=== PATIENT | male | born 1995 | race Caucasian/White ===

== ENCOUNTER 2020-06-21 19:12 | Emergency (ER) | payer MEDICARE ==
[~2020-06-21] VITALS: Ht 188 cm; Wt 118.2 kg
[2020-06-21] MEDS ORDERED: ACETAMINOPHEN 500 MG TABLET PO ONE (21:00)
[2020-06-21] MEDS ORDERED: ONDANSETRON ODT 4 MG TAB.RAPDIS. PO ONE (21:00)
--- NOTE | 2020-06-21 21:02 | PHYS DOC ---
Past Medical History Past Medical History: No Pertinent History Additional Past Surgical Histo: Left wrist fracture repair, left thumb dislocation, wisdom teeth Smoking Status: Former Smoker Alcohol Use: None Drug Use: None Social History Narrative: Former cocaine user (sober since 2019) General Adult EDM: Chief Complaint: MULTIPLE COMPLAINTS HPI: HPI: 24-year-old male presents with history of generalized malaise, subjective fever and chills, headache, sore throat, and cough which started yesterday afternoon. Patient also reports some associated nausea and vomiting. Patient does report new loss of taste and smell in addition to nasal congestion and runny nose.. Denies known sick contacts. Denies known exposure to COVID-19. Review of Systems: Review of Systems: Constitutional: Reports subjective fever, chills, and generalized malaise Eyes: Denies redness or eye pain HENT: Reports nasal congestion, sore throat, and loss of taste and smell Respiratory: Reports cough and shortness of breath Cardiovascular: Denies chest pain or palpitations GI: Denies abdominal pain; reports nauseaa and vomiting : Denies dysuria or hematuria Musculoskeletal: Denies back pain or neck pain Integument: Denies rash or skin lesions Neurologic: Reports headache; denies focal weakness or sensory changes Complete systems were reviewed and found to be within normal limits, except as documented in this note. Current Medications: Current Medications Medications (Trade) Dose Ordered Sig/Nithin Start Time Stop Time Status Last Admin Dose Admin Acetaminophen (Tylenol) 500 mg 1X ONCE 06/21/20 20:45 06/21/20 20:46 UNV Ondansetron HCl (Zofran Odt) 4 mg 1X ONCE 06/21/20 20:45 06/21/20 20:46 UNV Physical Exam: PE: Constitutional: Well developed, well nourished, ill-appearing but non-toxic appearance HENT: Normocephalic, atraumatic Eyes: Conjunctiva normal, no discharge Neck: Normal range of motion, no tenderness, supple, no meningeal signs Lungs & Thorax: No respiratory distress, equal chest rise and fall Abdomen: Soft, no tenderness, no guarding/rebound tenderness/distention Skin: Warm, dry, no erythema, no rash Extremities: No tenderness, ROM intact, no edema Neurologic: Alert and oriented X 3, no focal deficits noted Psychologic: Affect normal, judgment normal EKG: EKG: @2048 Sinus tachycardia at 109bpm, NO ST elevation, QRS 76ms, QT/QTc 268/362ms, t wave inversions to III, III, & V3-V6 Radiology/Procedures: Radiology/Procedures: PROCEDURE: CHEST AP ONLY Study: XR CHEST 1V Indication: Cough. Comparison: None. Findings: Within normal limits cardiomediastinal silhouette and arleen. No confluent airspace infiltrate, layering effusion or pneumothorax. Mild asymmetric elevation of the right hemidiaphragm. Impression: No acute radiographic abnormality of the chest. Electronically signed by: GORAN HOLLINS MD (06/21/2020 9:03 PM) [facility] PROCEDURE: CT ANGIOGRAPHY CHEST EXAM: CT ANGIOGRAPHY OF THE CHEST WITH AND WITHOUT CONTRAST. HISTORY: Shortness of breath, COVID-19, elevated d-dimer. TECHNIQUE: Computed tomographic angiography of the chest was performed before and after the intravenous administration of Isovue 370. 3-D maximum intensity projections were also performed. One or more of the following individualized dose reduction techniques were utilized for this examination: 1. Automated exposure control. 2. Adjustment of the mA and/or kV according to patient size. 3. Use of iterative reconstruction technique. COMPARISON: None. FINDINGS: Images of the upper abdomen reveal no acute abnormality. Bone windows reveal no suspicious lesions. No pulmonary emboli are identified. There is no aortic dissection or aneurysm. There are no pathologically enlarged mediastinal or axillary lymph nodes. There is no pleural or pericardial effusion. The heart is not enlarged. Lung windows reveal no infiltrates. IMPRESSION: 1. No pulmonary embolism. No infiltrates. Electronically signed by: Felicity Lynn MD (06/21/2020 11:30 PM) [facility] Course & Med Decision Making: Course & Med Decision Making Pertinent Labs and Imaging studies reviewed. (See chart for details) Patient presents with multiple complaints concerning for possible COVID-19. COVID-[address] COVID-19 testing pending. Fever and nausea addressed. Sats stable. Patient tachycardic. EKG otherwise stable. Labs obtained and posted to chart. Bandemia noted. D-dimer elevated. SIRS positive with tachycardia, fever, leukopenia, and bandemia. Lactic acid WNL. No signs of end organ damage. Empiric antibiotics given with Rocephin and Azithromycin. Chest x-ray without acute finding. CTA chest without signs of PE or focal pneumonia. Patient stable for discharge with outpatient follow-up with PCP. Discussed findings and plan with patient, who acknowledges understanding and agreement. COVID-19 CRITERIA: The patient was evaluated during the global COVID-19 pandemic, and that diagnosis was suspected/considered upon their initial presentation. Their evaluation, treatment and testing was consistent with current guidelines for patients who present with complaints or symptoms that may be related to COVID-19. Yojana Disclaimer: Yojana Disclaimer: This electronic medical record was generated, in whole or in part, using a voice recognition dictation system. Departure Departure Impression: Primary Impression: Suspected 2019 novel coronavirus infection Additional Impressions: Fever Qualified Codes: R50.9 - Fever, unspecified Nausea Bandemia Disposition: 01 DC HOME SELF CARE/HOMELESS Condition: STABLE Referrals: NO PCP (PCP) Patient Instructions: Fever, Adult, Onmu-td-Qnos, Nausea, Adult, Pzqo-ve-Xytv, Viral Syndrome Additional Instructions: You have been tested for or diagnosed with COVID-19. It is an infection caused by a new type of coronavirus. COVID-19 will cause cold-like or mild flu symptoms in most. It can cause more severe symptoms like problems breathing in some. There is no treatment for COVID-19. The body will clear the infection over time. Self-care will help to ease discomfort. Steps to Take: Self-Care Rest as needed. Healthy habits may help you feel better. Steps include: Choose healthy foods including fruits and vegetables. Drink water throughout the day. Get plenty of sleep each night. If you smoke, try to quit. It may ease breathing. Avoid alcohol. Keep Others Healthy The virus can spread to others. Droplets are released every time you sneeze or cough. The droplets can get into the mouth, nose, or eyes of people near you and lead to infection. To lower the chances of spreading COVID-19 to others: Stay at home until your doctor has said it is safe to leave. If you tested positive this will mean staying isolated until both of the following are true: At least 7 days have passed since the start of illness. You are free of fever for at least 72 hours without the use of medicine. During this time: - Avoid public areas, events, or transportation. Do not return to work or school until your doctor has said it is safe to do so. - Call ahead if you need to go to a medical center. Let them know you may have COVID-19. It will help them guide you where to go. They may also ask you to wear a facemask when you come to the office. - If you call for emergency medical services, let them know you may have COVID- 19. While at home: - Try to avoid close contact with others. Stay about 6 feet away. - If possible, spend most of your time in a separate room from others. - Use a face mask if you will be in close contact with others such as sharing a room or vehicle. - Have someone wipe down common surfaces in the home. Use household [employer] every day on areas like doorknobs, counters, or sinks. - Cough or sneeze into a tissue. Throw the tissue away right after use. If a tissue is not available, cough or sneeze into your elbow. - Wash your hands often. Wash them after sneezing or coughing. Use soap and water and wash for at least 20 seconds. Alcohol based hand lining cleaner can be used if soap and water is not available. - Do not prepare food for others. Avoid sharing personal items like forks, spoons, or toothbrushes. - Avoid close contact with pets while you are sick. There is no evidence of the virus passing to pets. This is a safety step until more is known about this virus. Isolation can be frustrating. Social interaction can help. Keep in touch with friends and family through phone and tech options. You can still interact with others in your home, just keep a safe distance of about 6 feet. Follow-up: Your doctors office will check in with you to see if there are any changes in your health. You may be asked to keep track of symptoms to share with them. They will also let you know when you are clear to be in public again. Problems to Look Out For: Contact your doctor if your recovery is not going as you expect. Get emergency care if you have problems such as: - Trouble breathing - Nonstop chest pain or pressure - Changes in awareness, confusion, or problems waking - Lips or face have bluish color - Worsening of symptoms If you think you have an emergency, call for emergency medical services right away. As taken from [facility] Azithromycin (ZITHROMAX) 250 Mg Tablet 1 PKG PO UD, #6 TAB Take 2 tablets on day 1 and then 1 tablet each day for the next 4 days as directed Prov: PERLA CARABALLO DO 06/21/20 Ondansetron (ONDANSETRON ODT) 4 Mg Tab.rapdis 1 TAB PO PRN Q6-8HRS PRN for NAUSEA, #16 TAB Prov: PERLA CARABALLO DO 06/21/20 COVID-19 Assessment: COVID-19 Patient Risks: Age 65 or older: No Sign of co-morbidity: No Exp to person + for COVID: No Exp to PUI: No Travel from affected area: No Lower respiratory symptoms: Yes Fever: Yes Other: Yes PPE Use: Full PPE with N95 mask or PAPR: Yes PERLA CARABALLO DO Jun 21, 2020 21:02
--- NOTE | 2020-06-21 21:05 | RAD ---
Study: XR CHEST 1V Indication: Cough. Comparison: None. Findings: Within normal limits cardiomediastinal silhouette and arleen. No confluent airspace infiltrate, layerin g effusion or pneumothorax. Mild asymmetric elevation of the right hemidiaphragm. Impression: No acute radiographic abnormality of the chest. Electronically signed by: GORAN HOLLINS MD (06/21/2020 9:03 PM) [facility]
[2020-06-21] MEDS ORDERED: IV NORMAL SALINE 1000ML BAG 1,000 ML IV ONE (21:30)
[2020-06-21] MEDS ORDERED: ONDANSETRON PF 4 MG/2 ML VIAL. IVP ONE (21:30)
[2020-06-21 21:40] LABS: BASO % 1 % (0-3); EOS % 0 % (0-3); HEMATOCRIT 46.3 % (39.0-53.0); HEMOGLOBIN 15.7 g/dL (13.0-17.5); LYMPH # 0.9 x10^3/uL (1.0-4.8); LYMPH % 26 % (24-48); MEAN CORPUSCULAR HEMOGLOBIN 30 pg (25-35); MEAN CORPUSCULAR HGB CONC 34 g/dL (31-37); MEAN CORPUSCULAR VOLUME 89 fL (79-100); MONO # 0.7 x10^3/uL (0.0-1.1); MONO % 21 % (0-9); NEUT # 1.7 x10^3/uL (1.8-7.7); NEUT % 52 % (31-73); PLATELET COUNT 191 x10^3/uL (140-400); RED BLOOD COUNT 5.22 x10^6/uL (4.30-5.70); RED CELL DISTRIBUTION WIDTH 13.3 % (11.5-14.5); WHITE BLOOD COUNT 3.3 x10^3/uL (4.0-11.0)
[2020-06-21 21:49] LABS: PROTHROMBIN TIME PATIENT 13.2 SEC (11.7-14.0)
[2020-06-21 21:50] LABS: CALCIUM 8.9 mg/dL (8.5-10.1); CREATININE 1.2 mg/dL (0.7-1.3); GFR 75.7; POTASSIUM 4.1 mmol/L (3.5-5.1)
[2020-06-21 21:54] LABS: D-DIMER 1.02 ug/mlFEU (0.00-0.50)
[2020-06-21 21:57] LABS: MAGNESIUM 2.2 mg/dL (1.8-2.4); TOTAL BILIRUBIN 0.5 mg/dL (0.2-1.0)
[2020-06-21 22:05] LABS: % BANDS 11 % (0-9); % LYMPHS 26 % (24-48); % MONOS 17 % (0-10); % SEGS 46 % (35-66)
[2020-06-21 22:06] LABS: CREATINE KINASE 306 U/L (39-308); PLT ESTIMATE ADEQUATE (ADEQUATE)
[2020-06-21 22:57] LABS: BILIRUBIN,URINE NEGATIVE (NEG); CLARITY,URINE CLEAR; COLOR,URINE YELLOW; NITRITE,URINE NEGATIVE (NEG); PH,URINE 6.5 (<5.0-8.0); PROTEIN,URINE NEGATIVE (NEG-TRACE)
--- NOTE | 2020-06-21 22:59 | EKG ---
[facility] [address] [place] [address] Test Date: 2020-06-21 Test Time: 20:46:19 Pat Name: JENNIFER ALARCON Department: Room: Gender: M Dentist/Owner: : 1995 Requested By: PERLA CARABALLO Order Number: [id number] Reading MD: Measurements Intervals Barto Rate: 109 P: 36 ND: 136 QRS: 36 QRSD: 76 T: 3 QT: 268 QTc: 362 Interpretive Statements SINUS TACHYCARDIA T ABNORMALITY IN ANTERIOR LEADS ABNORMAL ECG RI6.01 No previous ECG available for comparison
[2020-06-21] MEDS ORDERED: CONTRAST GIVEN. MC PRN (23:00)
[2020-06-21] MEDS ORDERED: IOHEXOL 350 MG/ML 100 ML VIAL. IV ONE (23:00)
[2020-06-21 23:02] LABS: BACTERIA,URINE 0 /HPF (0-FEW); RBC,URINE 0 /HPF (0-2); WBC,URINE 0 /HPF (0-4)
[2020-06-21] MEDS ORDERED: ONDA4TAB12 PO (23:15)
[2020-06-21] MEDS ORDERED: AZIT250T PO (23:15)
--- NOTE | 2020-06-21 23:32 | RAD ---
EXAM: CT ANGIOGRAPHY OF THE CHEST WITH AND WITHOUT CONTRAST. HISTORY: Shortness of breath, COVID-19, elevated d-dimer. TECHNIQUE: Computed tomographic angiography of the chest was performed before and after the intraveno us administration of Isovue 370. 3-D maximum intensity projections were also performed. One or more o f the following individualized dose reduction techniques were utilized for this examination: 1. Automated exposure control. 2. Adjustment of the mA and/or kV according to patient size. 3. Use of iterative reconstruction technique. COMPARISON: None. FINDINGS: Images of the upper abdomen reveal no acute abnormality. Bone windows reveal no suspicious lesions. No pulmonary emboli are identified. There is no aortic dissection or aneurysm. There are no pathologically enlarged mediastinal or axillary lymph nodes. There is no pleural or gil cardial effusion. The heart is not enlarged. Lung windows reveal no infiltrates. IMPRESSION: 1. No pulmonary embolism. No infiltrates. Electronically signed by: Felicity Lynn MD (06/21/2020 11:30 PM) [facility]
[2020-06-21] MEDS ORDERED: cefTRIAXone IV Push 1 GM VIAL. IVP ONE (23:45)
[2020-06-21] MEDS ORDERED: AZITHRMYCN 500MG IVPB FOR OMNI 250 ML IV ONE (23:45)
[2020-06-21 23:56] VITALS: BP 138/73
--- NOTE | 2020-06-23 09:38 | NUR ---
IP: Informed pt of positive COVID test and the need to quarantine for 10 days. Pt verbalized understanding.
== END 2020-06-22 | disposition home or self-care (01) ==
LOC: ER 19:12
DX: U07.1 COVID-19 (principal); R07.89 Other chest pain; R50.9 Fever, unspecified; Z87.891 Personal history of nicotine dependence; Z98.890 Other specified postprocedural states
CPT/HCPCS: 36415; 71045; 71275; 80053; 81001; 82553; 83605; 83735; 84484; 85007; 85025; 85379; 85610; 85730; 93005; 96361; 96374; 96375; 99284; C9803; J0696; J2405; J7030; Q9967; U0003

== ENCOUNTER 2020-10-28 05:52 | Emergency (ER) | payer MEDICARE, OTHER ==
[~2020-10-28] VITALS: Ht 185.4 cm; Wt 115.0 kg
[~2020-10-28 05:52] MED LIST: AZIT250T PO; ONDA4TAB12 PO
[2020-10-28 05:56] VITALS: BP 162/89
--- NOTE | 2020-10-28 06:09 | PHYS DOC ---
Past Medical History Past Medical History: No Pertinent History Additional Past Surgical Histo: Left wrist fracture repair, left thumb dislocation, wisdom teeth Smoking Status: Former Smoker Alcohol Use: None Drug Use: None General Adult EDM: Chief Complaint: FOOT INJURY PAIN HPI: HPI: Patient is a 25 year old male who present to ER for evaluation of left foot injury. Patient said he was running last night, sprained his left foot, having pain whenever he walks. Patient said the pain is right in the middle of the left foot. No ankle pain, no knee pain. Review of Systems: Review of Systems: Constitutional: Denies fever or chills. [] Eyes: Denies change in visual acuity. [] HENT: Denies nasal congestion or sore throat. [] Respiratory: Denies cough or shortness of breath. [] Cardiovascular: Denies chest pain or edema. [] GI: Denies abdominal pain, nausea, vomiting, bloody stools or diarrhea. [] : Denies dysuria. [] Musculoskeletal: Positive for left foot pain Integument: Denies rash. [] Neurologic: Denies headache, focal weakness or sensory changes. [] Endocrine: Denies polyuria or polydipsia. [] Lymphatic: Denies swollen glands. [] Psychiatric: Denies depression or anxiety. [] Heart Score: C/O Chest Pain: N/A Risk Factors: Risk Factors: DM, Current or recent (<one month) smoker, HTN, HLP, family history of CAD, obesity. Risk Scores: Score 0 - 3: 2.5% MACE over next 6 weeks - Discharge Home Score 4 - 6: 20.3% MACE over next 6 weeks - Admit for Clinical Observation Score 7 - 10: 72.7% MACE over next 6 weeks - Early Invasive Strategies Allergies: Allergies: Allergies Coded Allergies Type Severity Reaction Last Updated Verified No Known Drug Allergies 06/21/20 No Physical Exam: PE: Constitutional: Well developed, well nourished, no acute distress, non-toxic appearance. [] HENT: Normocephalic, atraumatic, bilateral external ears normal, oropharynx moist, no oral exudates, nose normal. [] Eyes: PERRLA, EOMI, conjunctiva normal, no discharge. [] Neck: Normal range of motion, no tenderness, supple, no stridor. [] Cardiovascular:Heart rate regular rhythm, no murmur [] Lungs & Thorax: Bilateral breath sounds clear to auscultation [] Abdomen: Bowel sounds normal, soft, no tenderness, no masses, no pulsatile masses. [] Skin: Warm, dry, no erythema, no rash. [] Back: No tenderness, no CVA tenderness. [] Extremities: Left midfoot is swollen and tender to palpation, left ankle was stable, no tenderness to palpation, no tenderness to palpation along the left tib-fib area, left knee joint is stable, nontender to palpation. Neurologic: Alert and oriented X 3, normal motor function, normal sensory func tion, no focal deficits noted. [] Psychologic: Affect normal, judgement normal, mood normal. [] EKG: EKG: [] Radiology/Procedures: Radiology/Procedures: [address] [id number] IMAGING REPORT Signed PATIENT: JENNIFER ALARCON ACCOUNT: [id number] : 1995 LOCATION: ER AGE: 25 SEX: M EXAM STATUS: REG ER ORD. PHYSICIAN: JOSE ENRIQUE DA SILVA DO REASON: left foot injured last night PROCEDURE: FOOT LEFT 3V XR FOOT_LEFT 3 VIEWS History: Reason: left foot injured last night / Spl. Instructions: / History: Pain Technique: 3 views left foot. Comparison: None. Findings: Normal alignment. No fracture. Punctate density projecting over the plantar aspect of the first digit. Small plantar calcaneal spur. Impression: 1. No acute osseous abnormality. 2. Punctate density projecting over the plantar aspect of the first digit. Recommend correlation for foreign body. Electronically signed by: Jitendra Barrios DO (10/28/2020 8:06 AM) [id number] DICTATED and SIGNED BY: JITENDRA BARRIOS DO DATE: 10/28/20 [id number] [place] [id number] IMAGING REPORT Signed PATIENT: JENNIFER ALARCON ACCOUNT: [id number] : 1995 LOCATION: ER AGE: 25 SEX: M EXAM STATUS: REG ER ORD. PHYSICIAN: JOSE ENRIQUE DA SILVA DO REASON: LEFT FOOT INJURED, SWELLING, SEVERE TENDER AT MIDFOOT PROCEDURE: CT LOWER EXTREMITY WO LEFT EXAMINATION: CT LOWER LEFT EXTREMITY WITHOUT CONTRAST, 10/28/2020 10:31 AM CLINICAL INDICATION: Left foot swelling, severe pain at midfoot. COMPARISON: Left foot radiograph 10/28/2020 TECHNIQUE: Helical CT imaging performed of the left foot without the use of intravenous contrast. Sagittal and coronal reformats were obtained. One or more of the following individualized dose reduction techniques were utilized for this examination: 1. Automated exposure control 2. Adjustment of the mA and/or kV according to patient size 3. Use of iterative reconstruction technique. FINDINGS: There is a comminuted fracture at the distal lateral edge of the medial cuneiform at the attachment of the Lisfranc ligament. Base of second metatarsal is intact. There is no other fracture. There is slight widening of the first TMT joint without subluxation or dislocation.Tendons are grossly intact and located. There is mild subcutaneous edema. IMPRESSION: Lisfranc injury with comminuted fracture of the medial cuneiform at the Lisfranc ligament attachment. There is slight widening of the first TMT joint without subluxation or dislocation. Electronically signed by: Yasmin Fish MD (10/28/2020 12:07 PM) [id number] DICTATED and SIGNED BY: YASMIN FISH MD DATE: 10/28/20 [id number] Course & Med Decision Making: Course & Med Decision Making Pertinent Labs and Imaging studies reviewed. (See chart for details) Patient is a 25-year-old male who present to ER due to left foot pain, left foot injury after he ran last night. X-ray of the left foot show some widening at the Lisfranc's joint area, therefore CT scan of his left foot obtained and it showed comminuted fracture with Lisfranc injury. Discussed with Dr. Tapan Lazo, orthopedic surgeon on-call who recommend to discharge patient home with nonweightbearing crutches and a walking boot. We will see the patient in the clinic next week for outpatient evaluation and treatment. A walking boot was applied to the left foot area, patient will provide crutches with crutch education, patient was told to strictly nonweightbearing on his left foot. Patient was given the phone number of the orthopedic surgeon, he will call the doctor today for an appointment next week. Patient said he was narcotic abuse recover so he declined any narcotic pain medication Dragon Disclaimer: Yojana Disclaimer: This electronic medical record was generated, in whole or in part, using a voice recognition dictation system. Departure Departure Impression: Primary Impression: Lisfranc fracture Disposition: HOME / SELF CARE / HOMELESS Condition: STABLE Referrals: NO PCP (PCP) TAPAN RANGEL DO Please call this ORTHOPEDIC SURGEON TODAY FOR FOLLOW UP NEXT WEEK Patient Instructions: Lisfranc's Fracture-Dislocation and Mid-Foot Sprain with [facility] Additional Instructions: DO NOT PUT ANY WEIGHT ON LEFT FOOT WHEN WALKING. USE CRUTCHES AT ALL TIME. FOLLOW UP WITH THE ORTHOPEDIC SURGEON ON SATURDAY. Scripts Ibuprofen (IBUPROFEN) 800 Mg Tablet 800 MG PO PRN Q6HRS PRN for PAIN, #30 TAB Prov: JOSE ENRIQUE DA SILVA DO 10/28/20 JOSE ENRIQUE DA SILVA DO Oct 28, 2020 06:09
--- NOTE | 2020-10-28 09:31 | RAD ---
XR FOOT_LEFT 3 VIEWS History: Reason: left foot injured last night / Spl. Instructions: / History: Pain Technique: 3 views left foot. Comparison: None. Findings: Normal alignment. No fracture. Punctate density projecting over the plantar aspect of the first digit . Small plantar calcaneal spur. Impression: 1. No acute osseous abnormality. 2. Punctate density projecting over the plantar aspect of the first digit. Recommend correlation for foreign body. Electronically signed by: Jitendra Barrios DO (10/28/2020 8:06 AM) [id number]
--- NOTE | 2020-10-28 12:09 | RAD ---
EXAMINATION: CT LOWER LEFT EXTREMITY WITHOUT CONTRAST, 10/28/2020 10:31 AM CLINICAL INDICATION: Left foot swelling, severe pain at midfoot. COMPARISON: Left foot radiograph 10/28/2020 TECHNIQUE: Helical CT imaging performed of the left foot without the use of intravenous contrast. Sag ittal and coronal reformats were obtained. One or more of the following individualized dose reduction techniques were utilized for this examinat ion: 1. Automated exposure control 2. Adjustment of the mA and/or kV according to patient size 3. Use of iterative reconstruction technique. FINDINGS: There is a comminuted fracture at the distal lateral edge of the medial cuneiform at the at tachment of the Lisfranc ligament. Base of second metatarsal is intact. There is no other fracture. T here is slight widening of the first TMT joint without subluxation or dislocation.Tendons are grossly intact and located. There is mild subcutaneous edema. IMPRESSION: Lisfranc injury with comminuted fracture of the medial cuneiform at the Lisfranc ligament attachment. There is slight widening of the first TMT joint without subluxation or dislocation. Electronically signed by: Yasmin Fish MD (10/28/2020 12:07 PM) [id number]
[2020-10-28] MEDS ORDERED: HYDROcodone/APAP 5/325MG 1 TAB TABLET PO ONE (12:45)
[2020-10-28] MEDS ORDERED: IBUP-1060 PO (13:35)
[2020-10-28] MEDS ORDERED: KETOROLAC 60 MG/2 ML VIAL. IM ONE (13:45)
== END 2020-10-28 14:01 | disposition home or self-care (01) ==
LOC: ER 05:52
DX: S92.242A Displaced fracture of medial cuneiform of left foot, initial encounter for closed fracture (principal); Z87.891 Personal history of nicotine dependence; X50.9XXA Other and unspecified overexertion or strenuous movements or postures, initial encounter; Y93.89 Activity, other specified; Y92.89 Other specified places as the place of occurrence of the external cause; Y99.8 Other external cause status
CPT/HCPCS: 73630; 73700; 96372; 99284; J1885

== ENCOUNTER 2021-09-10 14:49 | Emergency (ER) | payer OTHER ==
[~2021-09-10 14:49] MED LIST changes: +IBUP-1060 PO
[2021-09-10] MEDS ORDERED: IOHEXOL 300 MG/ML 100ML VIAL. IV ONE (15:15)
[2021-09-10] MEDS ORDERED: KETOROLAC 15 MG/ML VIAL. IVP ONE (15:15)
[2021-09-10 15:22] LABS: BASO % 0 % (0-3); EOS % 0 % (0-3); HEMOGLOBIN 15.7 g/dL (13.0-17.5); LYMPH # 1.7 x10^3/uL (1.0-4.8); LYMPH % 17 % (24-48); MEAN CORPUSCULAR HEMOGLOBIN 30 pg (25-35); MEAN CORPUSCULAR HGB CONC 34 g/dL (31-37); MEAN CORPUSCULAR VOLUME 89 fL (79-100); MONO # 0.8 x10^3/uL (0.0-1.1); MONO % 8 % (0-9); NEUT # 7.5 x10^3/uL (1.8-7.7); NEUT % 74 % (31-73); PLATELET COUNT 275 x10^3/uL (140-400); RED BLOOD COUNT 5.18 x10^6/uL (4.30-5.70); RED CELL DISTRIBUTION WIDTH 13.4 % (11.5-14.5); WHITE BLOOD COUNT 10.2 x10^3/uL (4.0-11.0)
[2021-09-10 15:28] LABS: CREATININE 1.1 mg/dL (0.7-1.3); GFR 82.2; POTASSIUM 3.6 mmol/L (3.5-5.1)
[2021-09-10] MEDS ORDERED: CONTRAST GIVEN. MC PRN (15:30)
[2021-09-10 15:34] LABS: ALBUMIN 4.2 g/dL (3.4-5.0); TOTAL BILIRUBIN 0.7 mg/dL (0.2-1.0); TOTAL PROTEIN 8.3 g/dL (6.4-8.2)
[2021-09-10 15:40] LABS: PROTHROMBIN TIME PATIENT 12.8 SEC (11.7-14.0)
[2021-09-10] MEDS ORDERED: LIDOCAINE (700MG/PATCH) PATCH. ONE (16:00)
[2021-09-10] MEDS ORDERED: ACETAMINOPHEN 500 MG TABLET PO ONE (16:00)
--- NOTE | 2021-09-10 16:03 | RAD ---
EXAMINATION: CT HEAD AND C-SPINE WO CLINICAL HISTORY: Head and neck pain following trauma. Fell off and kicked by bull. Pain mostly right -sided. TECHNIQUE: Serial axial images without IV contrast were obtained from the vertex to the foramen magnum. CT of the cervical spine without IV contrast. Spiral, high resolution axial images were obtained from the skull base to the cervicothoracic junction with sagittal and coronal planar reconstructions. CT Dose Reduction Employed: One or more of the following individualized dose reduction techniques wer e utilized for this examination: 1. Automated exposure control 2. Adjustment of the mA and/or kV ac cording to patient size 3. Use of iterative reconstruction technique. COMPARISON: None FINDINGS: BRAIN: Acute Change: No evidence of an acute contusion or other acute parenchymal process. Hemorrhage: No evidence of acute intracranial hemorrhage. Mass Lesion/Mass Effect: No evidence of intracranial mass or extraaxial fluid collection. No signific ant mass effect. Parenchyma: Parenchyma within normal limits for age. Ventricles: Ventricles within normal limits for age. Paranasal Sinuses and Skull Base: Small mucous retention cyst/polyp left ethmoid sinus. No evidence o f acute calvarial fracture. C-SPINE: Alignment: Normal anatomic alignment. Osseous Structures: No evidence of acute fracture or spondylolisthesis. Degenerative Changes: No significant degenerative changes. Cervical Soft Tissues: Paraspinal soft tissues are within normal limits. IMPRESSION: BRAIN: No evidence of acute intracranial abnormality. C-SPINE: No evidence of acute osseous abnormality involving the cervical spine. Electronically signed by: Esvin Cohen DO (09/10/2021 4:00 PM) [facility]
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
[2021-09-10] MEDS ORDERED: LIDOCAINE (700MG/PATCH) PATCH. TD ONE (16:15)
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
[2021-09-10] MEDS ORDERED: IBUP-1007 PO (16:44)
[2021-09-10 17:26] LABS: BACTERIA,URINE 0 /HPF (0-FEW)
--- NOTE | 2021-09-14 08:02 | EKG ---
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
== END 2021-09-10 16:58 | disposition home or self-care (01) ==
LOC: ER 14:49
DX: S32.029A Unspecified fracture of second lumbar vertebra, initial encounter for closed fracture (principal); S32.039A Unspecified fracture of third lumbar vertebra, initial encounter for closed fracture; F17.200 Nicotine dependence, unspecified, uncomplicated; V80.018A Animal-rider injured by fall from or being thrown from other animal in noncollision accident, initial encounter; Y93.89 Activity, other specified; Y92.89 Other specified places as the place of occurrence of the external cause; Y99.8 Other external cause status
CPT/HCPCS: 36415; 70450; 71260; 72125; 74177; 80053; 81001; 85025; 85610; 85730; 86850; 86900; 86901; 93005; 96374; 99291; G0390; J1885; Q9967; 99285-25